=== PATIENT | female | born 1955 | race Caucasian/White ===

== ENCOUNTER 2021-05-22 17:00 | Emergency (ER) | payer OTHER ==
[~2021-05-22] VITALS: Ht 157.5 cm; Wt 75.7 kg
[2021-05-22] MEDS ORDERED: LEVO88TA5 PO (17:19)
[2021-05-22] MEDS ORDERED: PROP10TA10 PO (17:19)
[2021-05-22] MEDS ORDERED: HYDR-4209 PO (18:34)
[2021-05-22] MEDS ORDERED: ONDANSETRON ODT 4 MG TAB.RAPDIS SL ONE (19:00)
[2021-05-22] MEDS ORDERED: HYDROCODONE/APAP 10-325 MG TABLET PO ONE (19:00)
[2021-05-22] MEDS ORDERED: ONDANSETRON ODT 4 MG TAB.RAPDIS ONE (19:06)
[2021-05-22] MEDS ORDERED: HYDROCODONE/APAP 10-325 MG TABLET ONE (19:07)
--- NOTE | 2021-05-22 19:30 | NUR ---
Patient discharged to home in stable condition. Written and verbal after care instructions given. Patient verbalizes understanding of instructions. Stressed follow up or return to ER for worsening s/s.
[2021-05-22 19:51] VITALS: BP 133/76
== END 2021-05-22 19:30 | disposition home or self-care (01) ==
LOC: ER 17:03
DX: M79.662 Pain in left lower leg (principal); M79.661 Pain in right lower leg; I83.813 Varicose veins of bilateral lower extremities with pain; E03.9 Hypothyroidism, unspecified; I10 Essential (primary) hypertension; Z86.79 Personal history of other diseases of the circulatory system
CPT/HCPCS: 73551; A4663; Q0162